=== PATIENT | male | born 1940 | race Caucasian/White ===

== ENCOUNTER 2024-08-19 06:12 | Emergency (ER) | payer MEDICARE, SELFPAY ==
[2024-08-19 06:19] VITALS: BP 142/72
--- NOTE | 2024-08-19 07:09 | ED.GENMED ---
History of Present Illness
General
Chief Complaint: Fall
Source: patient
Exam Limitations: none
Time Seen by Provider: 08/19/24 06:58
History of Present Illness
History of Present Illness:
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 Patient was taking a nap on the couch yesterday afternoon. He reports that he was having a bad dream and 'woke up swinging.' Patient
rolled off the couch and hit his left rib cage against a wooden table. He denies any head strike or loss of consciousness. Patient is presenting with left-sided rib discomfort. Pain is generally controlled with Tylenol. He denies any pleuritic
pain or shortness of breath. He is otherwise asymptomatic and denies any headache, neck pain, back pain, abdominal pain.
Past History
Past History
ED Past Medical History: Other (PE, )
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
Social History
Tobacco: Former smoker
Alcohol: None
Personal:
Living: with family
Phy Exam
General Physical Exam
General Presentation: well appearing and no apparent distress
General age: appears stated age
General Skin: warm and dry
General Habitus: normal and elderly
General Mental: alert
ENT Exam
ENT Exam: normocephalic and other (No external signs of head trauma. No cervical spine tenderness. )
Eye Exam
Eye Exam: PERRL
Cardiovascular Exam
Cardiovascular Exam: regular rate/rhythm
Pulmonary Exam
Pulmonary Exam: lungs clear, no respiratory distress, no rales, no crackles, no rhonchi and other (+Mild tenderness along L anterior and lateral ribcage. No ecchymosis or crepitus. Equal breath sounds bilaterally. )
Gastrointestinal Exam
Gastrointestinal Exam: non tender, soft and non distended
Neurological Exam
Neurological Exam: alert
[place] Coma Scale
Eye Opening: Spontaneous
Verbal Response: Oriented
Motor Response: Obeys Commands
GCS Total Score: 15
Musculoskeletal Exam
Musculoskeletal Exam: other (No C/T/L spine tenderness)
Skin Exam
Skin Exam: normal color and warm/dry
Psychiatric Exam
Psychiatric Exam: normal mood/affect
Course
Orders/Labs/Results
Orders:
Orders
08/19/24 07:09
Electrocardiogram (*1) Urgent
Reason for Study: Chest Pain
CT Chest W/o Iv Contrast Urgent
Comment:
Reason For Exam: L sided rib pain s/p fall
CT Head W/o Iv Contrast Urgent
Comment:
Reason For Exam: Fall on blood thinners
EKG- Treatment ONCE
08/19/24 07:56
Complete Blood Count/With Diff Urgent
Comprehensive Metabolic Panel Urgent
Troponin I Urgent
08/19/24 09:32
Incentive Spirometry [Rx Incentive Spirometry] [RESP] Urgent
Frequency: q1h while awake
Abnormal Lab Results
08/19/24
07:56
MCV 95.1 H fL
(80.0-94.0)
MCH 32.3 H pg
(27.0-31.0)
Absolute Lymphs (auto) 0.9 L 10^3/uL
(1.2-3.4)
Lymphocytes % 16.0 L %
(20.5-51.1)
Glucose 116 H mg/dl
(70-99)
08/19/24 07:56
08/19/24 07:56
Vital Signs
Initial and Last Documented VS:
Initial Vital Signs
Temp Pulse BP Pulse Ox
97.5 F 67 142/72 97
08/19/24 06:19 08/19/24 06:19 08/19/24 06:19 08/19/24 06:19
Last Documented Vital Signs
Temp Pulse Resp BP Pulse Ox
97.5 F 58 22 136/70 97
08/19/24 06:19 08/19/24 08:22 08/19/24 08:22 08/19/24 09:00 08/19/24 09:15
MDM/Problems Addressed
Differential Diagnosis Includes:
84yoM here with L chest/rib pain after a fall yesterday afternoon. Fell off the couch and struck L chest on a table. Denies head strike. Currently on Eliquis. VSS. He is well appearing in no distress. He is awake, alert, with a GCS of 15. There is
mild rib tenderness on exam without ecchymosis or crepitus. No abdominal tenderness. Bilateral breath sounds equal. Differential diagnosis includes but is not limited to: rib fracture, rib contusion, pneumothorax, hemothorax, less likely blunt
cardiac injury
Initial ED plan: Check cardiac labs, EKG, and CT chest. Although patient denies head strike, he was sleeping at the time of the fall and is on Eliquis so will order CT head for completeness.
*EKG
Interpreted by ED Provider?: Yes
EKG Intrepretation Date: 08/19/24
Heart Rate: 58
Rate: bradycardiac
Rhythm: sinus
[place]: normal axis
Interval: normal interval
QRS Pattern: normal QRS
Ischemia: no ischemia
*Critical Care Note
Total Time (30-74mins, 75-104mins- exclusive of procedures): Not Applicable
Update Note
Update Note:
Lab work overall unremarkable. EKG shows sinus bradycardia without ischemic changes and troponin within normal limits. CT chest shows evidence of 4 mildly displaced rib fractures. No pneumothorax or hemothorax. CT head is negative for traumatic
injuries. There is a suggestion of a pituitary mass for which outpatient MRI is recommended. Findings discussed with patient and and he was provided with a copy of his CT scan reports. Offered admission although patient feels comfortable
going home. He has not required any pain medications throughout ED stay and oxygen saturation 96-97%. Supportive care discussed including lidocaine patches, as needed Tylenol, and incentive spirometry. Advised close PCP follow-up and ED return
precautions discussed. Patient and expressed understanding and are in agreement with plan. He was discharged in stable condition.
ED Attending Note
-
Portions of this chart may have been created with voice recognition software.� Occasional wrong word or��sound alike� substitutions may have occurred due to the inherent limitations of voice recognition software.
Discharge Plan
Departure
Patient Disposition: Home (Routine Discharge)
Date of Disposition: 08/19/24
Time of Disposition: 09:41
Patient with high blood pressure during this ER visit?: No
Discharge Problem:
Multiple fractures of ribs of left side, Abnormal head CT
Instructions: Rib fracture or bruised rib - ED discharge instructions
Prescriptions:
No Action
Eliquis 2.5 mg Tablet
2.5 mg PO BID
Referrals:
Tip Salcedo CRNP [Family Provider] -
Activity Restrictions/Additional Instructions:
Use lidocaine patches daily (12 hours on, 12 hours off). Take Tylenol 650mg every 6 hours as needed for pain.
Use incentive spirometer every hour while awake.
Please follow-up with your family doctor next week. You will need an MRI of your brain for the possible pituitary mass seen on your CT scan.
Return to the ER with any worsening symptoms or uncontrolled pain.
Interventions
Interventions:
*Risk Screen - Suicide Last Done: 08/19/24 06:22
*Neglect/Abuse Screening Last Done: 08/19/24 07:58
ED- Fall Risk Assessment Last Done: 08/19/24 07:59
*ED COVID-19 Vaccine History Last Done: 08/19/24 07:58
*Nursing Disposition Last Done: 08/19/24 10:05
ED-Musculoskeletal Assessment Last Done: 08/19/24 07:59
ED- Neurological Assessment Last Done: 08/19/24 07:59
ED-Skin Assessment Last Done: 08/19/24 08:01
Discharge Date and Time
Discharge Date/Time: 08/19/24 10:05
Print Language: MAURITANIAN
[2024-08-19 07:47] VITALS: BP 145/72
[2024-08-19 07:58] VITALS: BMI 32.0
[2024-08-19 08:07] LABS: % Basophils 0.5 % (0-2); % Eosinophils 2.3 % (0-6); % Immature Granulocytes 0.4 % (0-0.5); % Monocytes 6.1 % (1.7-9.3); % Neutrophils 74.7 % (42.2-75.2); Absolute Eosinophils 0.1 10^3/uL (0-0.7); Absolute Lymphocytes 0.9 10^3/uL (1.2-3.4); Absolute Monocytes 0.3 10^3/uL (0.1-0.6); Absolute Neutrophils 4.1 10^3/uL (1.4-6.5); Hematocrit 44.7 % (39.0-52.0); Hemoglobin 15.2 g/dL (13.0-18.0); Mean Corpuscular Hgb 32.3 pg (27.0-31.0); Mean Corpuscular Volume 95.1 fL (80.0-94.0); Nucleated Red Blood Cells % 0 % (-); Platelet Count 151 10^3/uL (130-400); Red Cell Dist. Width 12.8 % (11.5-14.5); White Blood Cell Count 5.6 10^3/uL (4.8-10.8)
[2024-08-19 08:23] LABS: ALT (SGPT) 16 U/L (0-50); AST (SGOT) 22 U/L (17-59); Alkaline Phosphatase 92 U/L (38-126); Blood Urea Nitrogen 18 mg/dl (9-20); Calcium 9.5 mg/dl (8.4-10.2); Carbon Dioxide 30 mmol/L (22-30); Chloride 104 mmol/L (98-107); Estimated Creatinine Clearance 52 ml/min; Glucose 116 mg/dl (70-99); Sodium 140 mmol/L (135-145); Total Bilirubin 0.8 mg/dl (0.2-1.3); Total Protein 6.5 g/dl (6.3-8.2); eGFR > 60.00
[2024-08-19 08:34] LABS: Troponin I < 0.012 ng/ml
[2024-08-19 08:49] VITALS: BP 157/75
[2024-08-19 09:00] VITALS: BP 136/70
== END 2024-08-19 10:05 | disposition home or self-care (01) ==
LOC: EMR 06:12
PROVIDERS: Physician Assistant; EMERGENCY PHYSICIAN Emergency Medicine; FAMILY PHYSICIAN Nurse Practitioner
DX: S22.42XA Multiple fractures of ribs, left side, initial encounter for closed fracture (principal); R93.0 Abnormal findings on diagnostic imaging of skull and head, not elsewhere classified; W08.XXXA Fall from other furniture, initial encounter; Z87.891 Personal history of nicotine dependence; Z79.01 Long term (current) use of anticoagulants
CPT/HCPCS: 99285; 70450; 71250; 80053; 84484; 85025; 93005

== ENCOUNTER 2025-06-04 14:22 | Emergency (ER) | payer MEDICARE, SELFPAY ==
[2025-06-04] VITALS (8 sets, daily range): BP systolic 134–162; BP diastolic 56–100
--- NOTE | 2025-06-04 15:25 | ED.GENMED ---
History of Present Illness
General
Chief Complaint: Head Injury
Time Seen by Provider: 06/04/25 15:21
History of Present Illness
History of Present Illness:
85-year-old male with history of PE on Eliquis presenting to the emergency department after a fall. Patient was putting his trash can at the end of his driveway when he slipped and fell landing on his back. He did hit the back of his head. He did
not lose consciousness. He does have a slight headache as well as some nausea. No photophobia. No phonophobia. Does not the worst headache of his life. No numbness tingling. No weakness. Denies any neck pain or trauma elsewhere.
Past History
Past History
ED Past Medical History: Other (PE, )
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
Social History
Tobacco: Former smoker
Alcohol: None
Personal:
Living: with family
Phy Exam
Physical Exam
Physical Exam:
GENERAL: no acute distress
HEENT: Small abrasion to the right posterior head, extraocular muscles intact, no signs of entrapment, dentition intact, no other obvious trauma
NECK: no midline tenderness, normal range of motion,no other obvious trauma
BACK: no midline tenderness, no other obvious trauma
CHEST: no tenderness, no flail segment, no subcutaneous emphysema, no other obvious trauma
LUNGS: clear to auscultation bilaterally
CARDIOVASCULAR: regular rate and rhythm
ABDOMEN: soft, non-tender, no masses, no other obvious trauma
PELVIS: stable, no obvious injury
EXTREMITIES: moving all extremities, distal pulses intact, no other obvious trauma
NEUROLOGIC: awake, alert x 3, no focal deficits
Course
Orders/Labs/Results
Orders:
Orders
06/04/25 14:[address] [CT Head W/o Iv Contrast] Urgent
Comment:
Reason For Exam: fall on thinners
06/04/25 15:25
CT Cervical Spine W/o Iv Contr Urgent
Comment:
Reason For Exam: fall
Acetaminophen [Tylenol] 650 mg PO NOW STA
Ondansetron Orally Disint [Zofran Odt (Orally Disintegrating)] 4 mg PO NOW STA
06/04/25 16:06
Complete Blood Count/With Diff Urgent
Comprehensive Metabolic Panel Urgent
PT/INR [Prothrombin Time] Urgent
PTT Urgent
06/04/25 16:37
Levetiracetam Injectable [Keppra] 500 mg IV NOW STA
Nicardipine 40 mg/200 ml [Cardene] 40 mg in 200 ml IV NOW
Initial dose in mg/hr, then titrate:: 5
Titrate to keep:: Other
Titrate to keep other:: systolic <160
Titrate by mg/hr:: 2.5 mg/hr
Frequency of titrations (minutes):: 5-15 minutes
Maximum dose in mg/hr:: 15
Begin to taper infusion when:: Remained at goal for 2hrs
Taper by mg/hr:: 2.5 mg/hr
Frequency of taper (minutes) if patient maintains goal:: 15-30 minutes
Taper to off?: Yes
If infusion off & no longer maintaining goal:: Contact Provider
06/04/25 16:38
Cardiac Monitoring- Treatment ONCE
06/04/25 16:56
Prothrombin Complex(Pcc),Human [Kcentra] 2,166 unit Empty Viaflex Container 100 ml [Viaflex Empty Container] 80 ml IV NOW
Abnormal Lab Results
06/04/25
16:06
MCH 31.1 H pg
(27.0-31.0)
Immature Gran % 0.6 H %
(0-0.5)
Neutrophils % 75.5 H %
(42.2-75.2)
Lymphocytes % 16.6 L %
(20.5-51.1)
PT 14.7 H Sec
(11.4-14.6)
Chloride 108 H mmol/L
(98-107)
BUN 22 H mg/dl
(9-20)
Glucose 120 H mg/dl
(70-99)
06/04/25 16:06
06/04/25 16:06
Vital Signs
Initial and Last Documented VS:
Initial Vital Signs
Pulse Resp BP Pulse Ox
68 18 142/70 94
06/04/25 14:26 06/04/25 14:26 06/04/25 14:26 06/04/25 14:26
Last Documented Vital Signs
Pulse Resp BP Pulse Ox
60 18 134/68 99
06/04/25 18:00 06/04/25 14:26 06/04/25 18:00 06/04/25 18:00
MDM/Problems Addressed
Differential Diagnosis Includes:
Patient is a 85-year-old man on Eliquis presenting to the emergency department with fall with head strike. Vitals unremarkable and on exam he does have a small abrasion to the right posterior head. Differential consists of traumatic intracranial
injury versus migraine/tension headache. Could have traumatic cervical injury. Will proceed with CT head and neck. Will control headache currently with Tylenol and Zofran.
*Pulse Oximetry
SaO2: 94
Oxygen Mode of Delivery: Room air
Patient hypoxic: no
*Critical Care Note
Total Time (30-74mins, 75-104mins- exclusive of procedures): 42
comment:
Critical care statement: A total of 42 minutes of critical care time was provided for this patient. This includes management of unstable vital signs, evaluation of the patient at bedside, reviewing the patient's pertinent medical records, ordering
and reviewing studies, arranging urgent treatment with development of a management plan, evaluating patient's response to treatment, frequent reassessment, and discussion with consultants. This time was separate from time utilized to perform the
aforementioned documented procedures.
Update Note
Update Note:
CT scan per my interpretation consistent with right-sided subarachnoid. On reevaluation patient states headache has improved. No new neurodeficits. Discussed with [facility] who is in agreement with [facility]. Will control blood pressure for
goal less than 160 with nicardipine. Though if transfer is a problem with nicardipine will give bolus of labetolol. Will give Keppra prophylaxis. Patient accepted to [facility] as a ED to ED transfer. Accepting Dr. Noel
Patient remained stable. Transport team is here. Patient transferred in stable condition to [facility]
ED Attending Note
-
Portions of this chart may have been created with voice recognition software.� Occasional wrong word or��sound alike� substitutions may have occurred due to the inherent limitations of voice recognition software.
Discharge Plan
Departure
Patient Disposition: Acute Care Hospital
Date of Disposition: 06/04/25
Time of Disposition: 16:39
Discharge Problem:
Subarachnoid hemorrhage
Prescriptions:
No Action
Eliquis 2.5 mg Tablet
2.5 mg PO BID
albuterol sulfate 90 mcg/actuation Hfa Aerosol Inhaler
2 puff INHALATION QID PRN (Reason: SOB)
Referrals:
UNKNOWN - PT DOES,NOT KNOW [Unknown Provider]
Hospital Transfer
Other hospital: [facility]
I certify that the patient requires transfer: Yes
Discussed case with accepting physician: broderick
Reason for transfer: higher level of care
Interventions
Interventions:
*Risk Screen - Suicide Last Done: 06/04/25 14:26
*General Assessment Last Done: 06/04/25 14:26
*Neglect/Abuse Screening Last Done: 06/04/25 14:26
*ED- Fall Risk Assessment Last Done: 06/04/25 16:03
*ED COVID-19 Vaccine History Last Done: 06/04/25 16:03
*ED Influenza Vaccine History Last Done: 06/04/25 16:03
*Nursing Disposition Last Done: 06/04/25 17:52
ED- Neurological Assessment Last Done: 06/04/25 16:03
ED-Skin Assessment Last Done: 06/04/25 16:03
Discharge Date and Time
Print Language: PORTUGUESE
[2025-06-04] MEDS: ZOFRAN ODT (ORALLY DISINTEGRATING) 4 MG PO (15:29)
[2025-06-04] MEDS: TYLENOL 650 MG PO (15:32)
[2025-06-04 16:15] LABS: Hematocrit 45.1 % (39.0-52.0); Hemoglobin 15.1 g/dL (13.0-18.0); Mean Corp Hgb Conc. 33.5 g/dL (33.0-37.0); Mean Corpuscular Volume 92.8 fL (80.0-94.0); Nucleated Red Blood Cells % 0 % (-); Platelet Count 162 10^3/uL (130-400); Red Cell Dist. Width 12.8 % (11.5-14.5)
[2025-06-04 16:30] LABS: INR 1.12; PT 14.7 Sec (11.4-14.6)
[2025-06-04 16:31] LABS: APTT 25.4 Sec (23.4-35.0)
[2025-06-04 16:34] LABS: ALT (SGPT) 15 U/L (0-50); AST (SGOT) 22 U/L (17-59); Albumin 4.2 g/dl (3.5-5.0); Alkaline Phosphatase 84 U/L (38-126); Blood Urea Nitrogen 22 mg/dl (9-20); Calcium 9.7 mg/dl (8.4-10.2); Carbon Dioxide 25 mmol/L (22-30); Chloride 108 mmol/L (98-107); Estimated Creatinine Clearance 45 ml/min; Glucose 120 mg/dl (70-99); Potassium 4.1 mmol/L (3.5-5.1); Sodium 136 mmol/L (135-145); Total Protein 6.9 g/dl (6.3-8.2); eGFR 53.17
[2025-06-04] MEDS: KEPPRA 500 MG IV (16:56)
[2025-06-04] MEDS: KCENTRA 80 UNIT IV (17:28)
== END 2025-06-04 18:19 | disposition short-term general hospital (02) ==
LOC: EMR 14:22
PROVIDERS: EMERGENCY PHYSICIAN Student in an Organized Health Care Education/Training Program; FAMILY PHYSICIAN Nurse Practitioner
DX: S06.6X0A Traumatic subarachnoid hemorrhage without loss of consciousness, initial encounter (principal); W01.198A Fall on same level from slipping, tripping and stumbling with subsequent striking against other object, initial encounter; Y93.01 Activity, walking, marching and hiking; Y92.008 Other place in unspecified non-institutional (private) residence as the place of occurrence of the external cause; Z79.01 Long term (current) use of anticoagulants; Z86.711 Personal history of pulmonary embolism; Z87.891 Personal history of nicotine dependence; Z96.641 Presence of right artificial hip joint; Z96.652 Presence of left artificial knee joint
CPT/HCPCS: 99291; 96374; 96375; 70450; 72125; 80053; 85025; 85610; 85730; J7168